=== PATIENT | male | born 1950 | race African-American/Black ===

== ENCOUNTER 2018-06-17 11:26 | Inpatient (IN) | payer MEDICARE, MEDICAID ==
[~2018-06-17] VITALS: Ht 175.3 cm; Wt 160.6 kg
[2018-06-17] MEDS ORDERED: FUROSEMIDE 40MG/4ML VIAL IV ONE (22:00)
[2018-06-17] MEDS ORDERED: CEFTRIAXONE 1 G PREMIX 50 ML IV ONE (22:00)
[2018-06-17] MEDS ORDERED: ASPIRIN 81MG TABLET PO ONE (22:00)
[2018-06-17] MEDS ORDERED: VANCOMYCIN 1 G PREMIX 200 ML IV SCH (22:00)
[2018-06-17] MEDS ORDERED: NITROGLYCERIN OINT 1GM/INCH UDPKT TD ONE (22:00)
[2018-06-17 23:32] LABS: BASOPHILS % 0.7 % (0.0-2.0); EOSINOPHILS % 4.7 % (0.0-5.0); HEMATOCRIT. 43.9 % (42.0-52.0); HEMOGLOBIN. 14.1 g/dL (14.0-18.0); MEAN CORPUSCULAR HEMOGLOBIN 22.6 pg (28.0-32.0); MEAN CORPUSCULAR VOLUME 70.2 fL (80.0-94.0); MEAN PLATELET VOLUME 9.5 fl (7.4-10.4); MONOCYTES % 11.7 % (2.0-8.0); NEUTROPHILS % 52.9 % (40.0-76.0); PLATELET 223 x1000/uL (130-400); RED BLOOD CELL COUNT 6.25 mill/uL (4.7-6.1); RED CELL DISTRIBUTION WIDTH 16.2 % (11.6-14.6)
[2018-06-17 23:39] LABS: CHLORIDE 100 mEq/L (98-107)
[2018-06-17 23:42] LABS: PARTIAL THROMBOPLASTIN TIME 26.9 sec (23.4-31.0); PROTHROMBIN TIME 10.5 sec (9.1-11.1)
[2018-06-18] MEDS ORDERED: ACETAMINOPHEN 325MG TABLET PO PRN (10:00)
[2018-06-18] MEDS ORDERED: DEXTROSE 50% WATER 50ML SYRINGE IV PRN (10:30)
[2018-06-18 11:31] VITALS: BP 144/72
[2018-06-18 12:01] LABS: BG BASE EXCESS 3.6 mmol/L (-2.0-2.0); BG CARBOXYHEMOGLOBIN 1.6 % (0.5-1.5); BG DEOXYHEMOGLOBIN 3.9 % (0.0-5.0); BG HCO3 ACT 29.1 mmol/L (22.0-26.0); BG METHEMOGLOBIN 0.4 % (0.0-1.5); BG OXYHEMOGLOBIN 94.1 % (94.0-97.0); BG PCO2 47.4 mmHg (35.0-45.0); BG PH 7.406 (7.350-7.450); BG PO2 87.8 mmHg (75.0-100.0); BG SAMPLE SITE RIGHT RADIAL; BG TOTAL HEMOGLOBIN 14.4 g/dL (12.0-18.0); BG VENT MODE ROOM AIR
[2018-06-18 12:15] VITALS: BP 137/65
[2018-06-18] MEDS: INSULIN LISPRO 100 UNITS/ML SUBCUT SCH ×3 (12:50→21:00)
[2018-06-18] MEDS: BLOOD SUGAR DIAGNOSTIC STRIP TEST SCH ×3 (13:01→21:43)
[2018-06-18] MEDS: INSULIN GLARGINE UD 100 UNITS/ML SYR SUBCUT SCH ×2 (13:02→21:42)
[2018-06-18] MEDS: FUROSEMIDE 40MG TABLET PO SCH (13:05)
[2018-06-18] MEDS: DOCUSATE SODIUM 250MG CAPSULE PO SCH (13:05)
[2018-06-18] MEDS: TAMSULOSIN HCL 0.4MG SR CAPSULE PO SCH (13:06)
[2018-06-18] MEDS: ASPIRIN 81MG TABLET PO SCH (13:06)
[2018-06-18] MEDS: LOSARTAN POTASSIUM 100 MG TABLET PO SCH (13:07)
[2018-06-18] MEDS: HYDROCODONE/APAP 7.5/325MG 1 TAB TABLET PO PRN ×2 (13:31→21:38)
[2018-06-18] MEDS: IPRATROPIUM/ALBUTEROL 0.5-3(2.5)MG/3ML NEB HHN SCH ×2 (15:39→20:11)
[2018-06-18 17:39] VITALS: BP 126/49
[2018-06-18] MEDS: METFORMIN HCL 500MG TABLET PO SCH (18:56)
[2018-06-18 20:00] VITALS: BP 134/49
[2018-06-18] MEDS: ATORVASTATIN CALCIUM 40MG TABLET PO SCH (21:36)
[2018-06-18 22:00] VITALS: BP 134/59
[2018-06-19] VITALS (7 sets, daily range): BP systolic 112–152; BP diastolic 50–75
[2018-06-19] MEDS: IPRATROPIUM/ALBUTEROL 0.5-3(2.5)MG/3ML NEB HHN SCH ×3 (01:00→20:56)
[2018-06-19] MEDS: BLOOD SUGAR DIAGNOSTIC STRIP TEST SCH ×4 (06:58→21:00)
[2018-06-19] MEDS: LOSARTAN POTASSIUM 100 MG TABLET PO SCH (09:56)
[2018-06-19] MEDS: TAMSULOSIN HCL 0.4MG SR CAPSULE PO SCH (09:57)
[2018-06-19] MEDS: ASPIRIN 81MG TABLET PO SCH (09:57)
[2018-06-19] MEDS: HYDROCODONE/APAP 7.5/325MG 1 TAB TABLET PO PRN ×2 (09:57→22:11)
[2018-06-19] MEDS: METFORMIN HCL 500MG TABLET PO SCH ×2 (09:58→17:14)
[2018-06-19] MEDS: FUROSEMIDE 40MG TABLET PO SCH (09:58)
[2018-06-19] MEDS: DOCUSATE SODIUM 250MG CAPSULE PO SCH (09:58)
[2018-06-19] MEDS: INSULIN LISPRO 100 UNITS/ML SUBCUT SCH ×4 (10:09→21:00)
[2018-06-19] MEDS: INSULIN GLARGINE UD 100 UNITS/ML SYR SUBCUT SCH ×2 (13:24→22:09)
[2018-06-19 16:09] LABS: CLARITY URINE CLEAR (CLEAR); COLOR URINE YELLOW (YELLOW); KETONES URINE NEGATIVE (NEGATIVE); LEUKOCYTE ESTERASE URINE NEGATIVE (NEGATIVE); NITRITE URINE NEGATIVE (NEGATIVE); OCCULT BLOOD URINE NEGATIVE (NEGATIVE); PROTEIN URINE NEGATIVE (NEGATIVE); SPECIFIC GRAVITY URINE 1.019 (1.005-1.030)
[2018-06-19] MEDS: ENOXAPARIN 40MG/0.4ML SYR SUBCUT SCH (17:15)
[2018-06-19] MEDS: ATORVASTATIN CALCIUM 40MG TABLET PO SCH (21:53)
[2018-06-20] MEDS: IPRATROPIUM/ALBUTEROL 0.5-3(2.5)MG/3ML NEB HHN SCH ×2 (01:25→09:15)
[2018-06-20 04:00] VITALS: BP 120/54
[2018-06-20] MEDS: BLOOD SUGAR DIAGNOSTIC STRIP TEST SCH ×2 (06:39→12:46)
[2018-06-20] MEDS: ENOXAPARIN 40MG/0.4ML SYR SUBCUT SCH (06:43)
[2018-06-20 07:14] LABS: CHLORIDE 104 mEq/L (98-107)
[2018-06-20] MEDS: INSULIN LISPRO 100 UNITS/ML SUBCUT SCH ×2 (07:24→12:46)
[2018-06-20 08:00] VITALS: BP 147/76
[2018-06-20] MEDS: FUROSEMIDE 40MG TABLET PO SCH (09:52)
[2018-06-20] MEDS: LOSARTAN POTASSIUM 100 MG TABLET PO SCH (09:52)
[2018-06-20] MEDS: DOCUSATE SODIUM 250MG CAPSULE PO SCH (09:52)
[2018-06-20] MEDS: TAMSULOSIN HCL 0.4MG SR CAPSULE PO SCH (09:52)
[2018-06-20] MEDS: ASPIRIN 81MG TABLET PO SCH (09:52)
[2018-06-20] MEDS: HYDROCODONE/APAP 7.5/325MG 1 TAB TABLET PO PRN (09:53)
[2018-06-20] MEDS: METFORMIN HCL 500MG TABLET PO SCH (09:53)
[2018-06-20] MEDS: INSULIN GLARGINE UD 100 UNITS/ML SYR SUBCUT SCH (10:26)
[2018-06-20 11:11] VITALS: BP 147/76
[2018-06-20 13:02] VITALS: BP 142/75
== END 2018-06-20 14:00 | disposition home health service (06) | DRG 292 ==
LOC: ER 11:26 → 6WST 06-18 00:34 → ENRESERV 06-18 08:01
PROVIDERS: ADMIT Internal Medicine; ATTEND Internal Medicine
DX: I11.0 Hypertensive heart disease with heart failure (principal); Z68.43 Body mass index [BMI] 50.0-59.9, adult; I50.33 Acute on chronic diastolic (congestive) heart failure; E66.01 Morbid (severe) obesity due to excess calories; G47.30 Sleep apnea, unspecified; E11.42 Type 2 diabetes mellitus with diabetic polyneuropathy; G89.4 Chronic pain syndrome; M54.5 Low back pain; R26.81 Unsteadiness on feet; Z96.651 Presence of right artificial knee joint; J44.9 Chronic obstructive pulmonary disease, unspecified; M17.12 Unilateral primary osteoarthritis, left knee; Z79.4 Long term (current) use of insulin; Z79.82 Long term (current) use of aspirin; Z82.49 Family history of ischemic heart disease and other diseases of the circulatory system; Z83.3 Family history of diabetes mellitus; Z86.73 Personal history of transient ischemic attack (TIA), and cerebral infarction without residual deficits; Z87.891 Personal history of nicotine dependence
CPT/HCPCS: 36415; 36600; 71045; 72110; 76700; 80048; 80061; 82375; 82805; 82962; 83036; 83605; 83880; 84443; 84484; 93005; 93306; 93923; 94640; 96365; 96368; 96372; 96375; 97162; 97166; 99285; J0696; J1650; J1815; J1940; J3370; J7620

== ENCOUNTER 2018-10-07 12:03 | Day surgery (SDC) | payer MEDICARE, MEDICAID ==
[~2018-10-07] VITALS: Ht 175.3 cm; Wt 152.9 kg
[2018-10-07] MEDS ORDERED: GENTAMICIN SULF 40MG/ML 2ML VIAL ONE (12:29)
[2018-10-07] MEDS ORDERED: LIDOCAINE HCL 1% 20ML VIAL (Pyxis) INJ ONE ×2 (12:29→16:05)
[2018-10-07] MEDS ORDERED: SODIUM CHLORIDE 0.9% 0 ML IV ONE (12:30)
[2018-10-07] MEDS ORDERED: BACITRACIN 50,000 UNITS/VIAL ONE (12:30)
[2018-10-07] MEDS ORDERED: BUPIVACAINE HCL/PF 0.5% (5MG/ML) 10ML ONE (12:30)
[2018-10-07] MEDS ORDERED: NORMAL SALINE 0.9% 10 ML SYR ONE (12:33)
[2018-10-07] MEDS ORDERED: SODIUM CHLORIDE 0.9% 1,000 ML IV SCH (14:15)
[2018-10-07] MEDS ORDERED: TRIAMCINOLONE ACETONIDE 40MG/ML 1ML VIAL ONE (15:33)
[2018-10-07] MEDS ORDERED: FENTANYL CITRATE/PF 50MCG/ML 2ML VIAL ONE (15:37)
[2018-10-07] MEDS ORDERED: PROPOFOL 200MG/20ML VIAL IV ONE (15:37)
[2018-10-07] MEDS ORDERED: MIDAZOLAM HCL 2 MG/2 ML VIAL ONE (15:37)
[2018-10-07] MEDS ORDERED: METF-414 PO (16:11)
[2018-10-07] MEDS ORDERED: ASPI-1159 PO (16:11)
[2018-10-07] MEDS ORDERED: NAP5EC PO (16:11)
[2018-10-07] MEDS ORDERED: AMLO10TA80 PO (16:11)
[2018-10-07] MEDS ORDERED: FURO40TA5 PO (16:11)
[2018-10-07] MEDS ORDERED: LORA10TA7 PO (16:11)
[2018-10-07] MEDS ORDERED: CHOL100062 PO (16:11)
[2018-10-07] MEDS ORDERED: OMEP20CA10 PO (16:11)
[2018-10-07] MEDS ORDERED: INSNOV SUBCUT (16:24)
[2018-10-07] MEDS ORDERED: INSU100I28 SQ (16:24)
[2018-10-07] MEDS ORDERED: TAMS0.4C31 PO (16:24)
[2018-10-07] MEDS ORDERED: DOCU-286 PO (16:24)
[2018-10-07] MEDS ORDERED: ALBU18HF2 IH (16:24)
[2018-10-07] MEDS ORDERED: ATOR40TA70 PO (16:24)
[2018-10-07] MEDS ORDERED: LOSA25TA12 PO (16:24)
[2018-10-07] MEDS ORDERED: HYDR-3282 PO (16:24)
[2018-10-07] MEDS ORDERED: ONDANSETRON HCL 4MG/2ML INJ IV PRN (16:25)
[2018-10-07] MEDS ORDERED: MORPHINE SULFATE 4 MG/ML CPJ (NOT FOR IM USE) IV PRN (16:30)
[2018-10-07] MEDS ORDERED: FENTANYL CITRATE/PF 50MCG/ML 2ML VIAL IV PRN (16:30)
[2018-10-07] MEDS ORDERED: MEPERIDINE HCL/PF 25MG/ML CPJ IV PRN (16:30)
[2018-10-07] MEDS ORDERED: HYDROMORPHONE HCL/PF 2MG/ML CPJ IV PRN (16:30)
== END 2018-10-07 17:15 | disposition home or self-care (01) ==
LOC: OR 12:03
PROVIDERS: ATTEND Podiatrist Foot & Ankle Surgery
DX: L90.5 Scar conditions and fibrosis of skin (principal); I10 Essential (primary) hypertension; E11.9 Type 2 diabetes mellitus without complications; K21.9 Gastro-esophageal reflux disease without esophagitis; J44.9 Chronic obstructive pulmonary disease, unspecified; I50.9 Heart failure, unspecified; G47.30 Sleep apnea, unspecified
CPT/HCPCS: 28045; 82962; 88304; J2250; J3010; J3490; J1580; J2704; J3301; J7040

== ENCOUNTER 2022-01-08 13:27 | Emergency (ER) | payer MEDICARE, MEDICAID ==
[~2022-01-08] VITALS: Ht 175.3 cm; Wt 160.0 kg
[~2022-01-08 13:27] MED LIST: ALBU18HF2 IH; AMLO10TA80 PO; ASPI-1497 PO; ATOR40TA70 PO; CHOL100062 PO; DOCU-286 PO; FURO40TA5 PO; HYDR-4348 PO; INSNOV SUBCUT; INSU100I28 SQ; LORA10TA7 PO; LOSA25TA26 PO; METF-414 PO; NAP5EC PO; OMEP20CA14 PO; TAMS0.4C31 PO
[2022-01-08 14:01] VITALS: BP 134/78
[2022-01-08 16:24] LABS: BASOPHILS % 0.5 % (0.0-2.0); EOSINOPHILS % 3.6 % (0.0-5.0); LYMPHOCYTES % 25.8 % (20.0-50.0); MEAN CORPUSCULAR HEMOGLOBIN 22.3 pg (28.0-32.0); MEAN CORPUSCULAR VOLUME 70.4 fL (80.0-94.0); MEAN PLATELET VOLUME 8.6 fl (7.4-10.4); MONOCYTES % 8.4 % (2.0-8.0); NEUTROPHILS % 61.7 % (40.0-76.0); PLATELET 225 x1000/uL (130-400); RED BLOOD CELL COUNT 6.26 mill/uL (4.7-6.1); RED CELL DISTRIBUTION WIDTH 15.6 % (11.6-14.6)
[2022-01-08 16:32] LABS: CHLORIDE 104 mEq/L (98-107)
[2022-01-08] MEDS ORDERED: ALBUTEROL (0.083%) 2.5MG/3ML NEB HHN ONE (18:45)
[2022-01-08] MEDS ORDERED: DOXY-326 MT (19:29)
[2022-01-08] MEDS ORDERED: ALBU6.7H9 INH (19:29)
[2022-01-08] MEDS ORDERED: GUAI-453 MT (19:29)
[2022-01-08] MEDS ORDERED: DOXYCYCLINE HYCLATE 100MG CAPSULE PO ONE (19:30)
== END 2022-01-08 19:54 | disposition home or self-care (01) ==
LOC: ER 13:35
DX: J40 Bronchitis, not specified as acute or chronic (principal); I11.0 Hypertensive heart disease with heart failure; I50.9 Heart failure, unspecified; E78.00 Pure hypercholesterolemia, unspecified; Z20.822 Contact with and (suspected) exposure to COVID-19
CPT/HCPCS: 36415; 71045; 80053; 83880; 84484; 85025; 87426; 93005; 93970; 94640; 99285; C9803

== ENCOUNTER 2022-10-26 08:28 | Emergency (ER) | payer MEDICARE, MEDICAID ==
[~2022-10-26] VITALS: Ht 175.3 cm; Wt 168.6 kg
[~2022-10-26 08:28] MED LIST changes: +ALBU6.7H3 INH; +DOXY-456 MT; +GABA-532 PO; +GUAI-453 MT; +POTA8TAB70 PO
[2022-10-26 08:41] VITALS: BP 164/70
[2022-10-26] MEDS ORDERED: ACETAMINOPHEN 325MG TABLET PO ONE (09:00)
[2022-10-26] MEDS ORDERED: IBUP-2029 MT (09:37)
== END 2022-10-26 10:40 | disposition home or self-care (01) ==
LOC: ER 09:39
DX: S92.901A Unspecified fracture of right foot, initial encounter for closed fracture (principal); Z79.899 Other long term (current) drug therapy; X58.XXXA Exposure to other specified factors, initial encounter; Y93.9 Activity, unspecified; Y92.89 Other specified places as the place of occurrence of the external cause; Y99.8 Other external cause status
CPT/HCPCS: 73630; 99283

== ENCOUNTER 2024-02-05 08:31 | Emergency (ER) | payer MEDICARE, MEDICAID ==
[~2024-02-05] VITALS: Ht 177.8 cm; Wt 137.0 kg
[~2024-02-05 08:31] MED LIST changes: +IBUP-2029 MT
[2024-02-05 08:40] VITALS: BP 170/71; TEMP 98.4
[2024-02-05 09:12] LABS: HEMATOCRIT. 43.4 % (42.0-52.0); HEMOGLOBIN. 13.3 g/dL (14.0-18.0); MEAN CORPUSCULAR HEMOGLOBIN 21.9 pg (28.0-32.0); MEAN CORPUSCULAR HGB CONC 30.7 g/dL (31.0-37.0); MEAN CORPUSCULAR VOLUME 71.5 fL (80.0-94.0); MEAN PLATELET VOLUME 9.2 fl (7.4-10.4); PLATELET 167 x1000/uL (130-400); RED BLOOD CELL COUNT 6.07 mill/uL (4.7-6.1); WHITE BLOOD COUNT 4.1 x1000/uL (4.5-11.0)
[2024-02-05 09:13] LABS: DIFFERENTIAL COMMENT 1
[2024-02-05 09:20] LABS: CARBON DIOXIDE 24 mEq/L (21-32); CHLORIDE 101 mEq/L (98-107); POTASSIUM 3.4 mEq/L (3.5-5.1); SODIUM 139 mEq/L (136-145)
[2024-02-05 09:25] LABS: CREATININE 1.1 mg/dL (0.6-1.3)
[2024-02-05 09:26] LABS: GLUCOSE 272 mg/dL (70-105); UREA NITROGEN BLOOD 9 mg/dL (9-23)
[2024-02-05 09:29] LABS: TROPONIN I HIGH SENSITIVITY < 4 ng/L (3.0-53)
[2024-02-05] MEDS: PREDNISONE 20MG TABLET PO ONE (11:03)
[2024-02-05] MEDS: ALBUTEROL (0.083%) 2.5MG/3ML NEB HHN STA (11:24)
[2024-02-05] MEDS: IPRATROPIUM BROMIDE (0.02%) 0.5MG/2.5ML NEB HHN STA (11:24)
[2024-02-05 11:25] LABS: ALANINE AMINOTRANSFERASE 57 IU/L (10-49); ASPARTATE AMINOTRANSFERASE 33 IU/L (<34)
[2024-02-05 11:26] VITALS: PULSE 82; RESP 22; O2SAT 94
[2024-02-05 11:26] LABS: ALBUMIN 4.3 g/dL (3.2-4.8); BILIRUBIN DIRECT 0.1 mg/dL (<=3.0); BILIRUBIN TOTAL 0.4 mg/dL (0.1-1.0); PROTEIN TOTAL 6.7 g/dL (6.0-8.3)
[2024-02-05] MEDS ORDERED: BENZ100C86 MT (13:37)
[2024-02-05 15:09] LABS: PLATELET ESTIMATE NORMAL
[2024-02-05 15:10] LABS: MICROCYTOSIS 1+
[2024-02-05 15:11] LABS: ANISOCYTOSIS 1+
== END 2024-02-05 14:07 | disposition home or self-care (01) ==
LOC: ER 08:31
DX: B34.9 Viral infection, unspecified (principal); J45.909 Unspecified asthma, uncomplicated; E11.65 Type 2 diabetes mellitus with hyperglycemia; I50.9 Heart failure, unspecified; I11.0 Hypertensive heart disease with heart failure; E87.6 Hypokalemia; Z79.899 Other long term (current) drug therapy; Z79.82 Long term (current) use of aspirin; Z98.890 Other specified postprocedural states
CPT/HCPCS: 99285; 71045; 80076; 80048; 83880; 85025; 84484; 36415; 94640; 93005; J7512

== ENCOUNTER 2025-01-09 11:32 | Day surgery (SDC) | payer MEDICARE, MEDICAID ==
[~2025-01-09] VITALS: Ht 177.8 cm; Wt 117.9 kg
[~2025-01-09 11:32] MED LIST changes: +BENZ100C86 MT; -DOXY-456 MT; +DOXY-461 MT; +GABA-1180 PO; -GABA-532 PO; -NAP5EC PO; +NAPR-1495 PO; +SODIUM CHLORIDE 0.9% 1,000 ML IV SCH
[2025-01-09 12:08] LABS: BASOPHILS % 0.9 % (0.0-2.0); EOSINOPHILS % 2.7 % (0.0-5.0); HEMATOCRIT. 42.3 % (42.0-52.0); HEMOGLOBIN. 13.5 g/dL (14.0-18.0); MEAN CORPUSCULAR HEMOGLOBIN 22.2 pg (28.0-32.0); MEAN CORPUSCULAR HGB CONC 31.9 g/dL (31.0-37.0); MEAN CORPUSCULAR VOLUME 69.5 fL (80.0-94.0); MEAN PLATELET VOLUME 8.8 fl (7.4-10.4); MONOCYTES % 9.7 % (2.0-8.0); NEUTROPHILS % 62.7 % (40.0-76.0); PLATELET 224 x1000/uL (130-400); RED BLOOD CELL COUNT 6.08 mill/uL (4.7-6.1); RED CELL DISTRIBUTION WIDTH 15.8 % (11.6-14.6); WHITE BLOOD COUNT 5.3 x1000/uL (4.5-11.0)
[2025-01-09 12:09] LABS: ADD RBC MORPHOLOGY YES; DIFFERENTIAL COMMENT 1
[2025-01-09 12:25] LABS: CHLORIDE 103 mEq/L (98-107); SODIUM 139 mEq/L (136-145)
[2025-01-09 12:26] LABS: CALCIUM 9.5 mg/dL (8.7-10.4); CARBON DIOXIDE 30 mEq/L (21-32)
[2025-01-09 12:31] LABS: CREATININE 1.1 mg/dL (0.6-1.3); GLUCOSE 168 mg/dL (70-105); UREA NITROGEN BLOOD 12 mg/dL (9-23)
[2025-01-09] MEDS ORDERED: MIDAZOLAM HCL 2 MG/2 ML VIAL ONE (13:19)
[2025-01-09] MEDS ORDERED: PROPOFOL 200MG/20ML VIAL IV ONE ×2 (13:19→14:02)
[2025-01-09] MEDS ORDERED: FENTANYL CITRATE/PF 50MCG/ML 2ML VIAL ONE (13:20)
[2025-01-09] MEDS ORDERED: ONDANSETRON HCL 4MG/2ML INJ IV PRN (13:30)
[2025-01-09] MEDS ORDERED: SIMETHICONE 40 MG/0.6 ML 15ML ONE (13:39)
[2025-01-09 14:49] LABS: ANISOCYTOSIS 1+; HYPOCHROMASIA 1+; MICROCYTOSIS 3+; PLATELET ESTIMATE NORMAL
== END 2025-01-09 15:35 | disposition home or self-care (01) ==
LOC: OR 11:32
PROVIDERS: ATTEND Internal Medicine Gastroenterology
DX: D50.9 Iron deficiency anemia, unspecified (principal); K29.50 Unspecified chronic gastritis without bleeding; I12.9 Hypertensive chronic kidney disease with stage 1 through stage 4 chronic kidney disease, or unspecified chronic kidney disease; E11.22 Type 2 diabetes mellitus with diabetic chronic kidney disease; N18.9 Chronic kidney disease, unspecified; I25.10 Atherosclerotic heart disease of native coronary artery without angina pectoris; E78.5 Hyperlipidemia, unspecified; N40.0 Benign prostatic hyperplasia without lower urinary tract symptoms; Z86.0100 Personal history of colon polyps, unspecified; Z82.49 Family history of ischemic heart disease and other diseases of the circulatory system; Z83.3 Family history of diabetes mellitus; Z79.82 Long term (current) use of aspirin; Z79.84 Long term (current) use of oral hypoglycemic drugs; Z79.899 Other long term (current) drug therapy; Z98.890 Other specified postprocedural states
CPT/HCPCS: 43239; 45378; 80048; 82962; 85025; 36415; 88312; 88313; 88305; J3010; J2250; J2704